=== PATIENT | female | born 1980 | race Caucasian/White ===

== ENCOUNTER 2018-02-05 21:08 | Emergency (ER) | payer BC ==
[2018-02-05] MEDS ORDERED: LISI-362 PO (21:20)
[2018-02-05] MEDS ORDERED: VENL150C61 PO (21:20)
[2018-02-05] MEDS ORDERED: VENL75CA58 PO (21:20)
--- NOTE | 2018-02-05 21:32 | ER Report ---
History and Physical Time Seen By MD: 21:32 Hx. of Stated Complaint: Patient stepped wrong on break in concrete twisting leg and then falling to the ground this am. Complains of pain to whole left leg HPI/ROS CHIEF COMPLAINT: HISTORY OF PRESENT ILLNESS: This is a 37 year old female. She tripped on the concrete and twisted her leg and fell. This happened this morning. She is having pain in the left lower extremity from the foot up to the hip. She is able to bear weight, but very painful. Can move the leg, but hurts when she does. Pain seems worse in the ankle and lower leg. Some in the knee and hip as well. Normal sensation in the leg and foot. Allergies: Coded Allergies: egg (Verified Adverse Reaction, Intermediate, 02/05/18) stomach "not well" Home Meds Active Scripts Hydrocodone Bit/Acetaminophen (HYDROCODON-ACETAMINOPHEN 5-325) 1 Each Tablet, 1 EACH PO Q4H PRN for PAIN, #6 TAB 0 Refills Prov:JULIAN HAIR MD 02/05/18 Cyclobenzaprine Hcl (CYCLOBENZAPRINE HCL) 10 Mg Tablet, 10 MG PO Q8H PRN for MUSCLE SPASMS, #10 TAB 0 Refills Prov:JULIAN HAIR MD 02/05/18 Reported Medications Lisinopril (LISINOPRIL) 10 Mg Tablet, 10 MG PO QDAY, TAB 02/05/18 Venlafaxine Hcl (EFFEXOR XR) 150 Mg Cap.er.24h, 150 MG PO QDAY 02/05/18 Venlafaxine Hcl (EFFEXOR XR) 75 Mg Cap.er.24h, 75 MG PO QDAY 02/05/18 Reviewed Nurses Notes: Yes Hx Substance Use Disorder: No Hx Alcohol Use: No Constitutional Vital Sign - Last 24 Hours 02/05/18 02/05/18 02/05/18 02/05/18 21:12 21:12 22:38 22:53 Temp 97.9 Pulse 113 110 102 Resp 18 B/P (MAP) 131/103 131/103 (112) Pulse Ox 92 88 92 O2 Delivery Room Air 02/05/18 02/05/18 02/05/18 22:58 23:13 23:30 Pulse 104 105 85 Resp 16 B/P (MAP) 138/82 (100) Pulse Ox 90 88 92 O2 Delivery Room Air Physical Exam General Appearance: The patient is alert. No acute distress. Cardiovascular: Normal capillary refill and pulses. Neurological: Normal sensation throughout the leg and foot. Skin: No redness or breakdown. Musculoskeletal: Pain over the medial and lateral malleoli of the ankle. Pain over the head of the fifth metatarsal. No pain in the rest of the foot. Pain anterior tibia of the lower leg and lateral side of the leg. Pain in the knee with movement, but no laxity. Some pain on lateral joint line, but none on medial. No posterior knee pain. Has some pain lateral hip over area of the greater trochanter. No posterior or anterior area hip pain. DIFFERENTIAL DIAGNOSIS: After history and physical exam, differential diagnosis was considered for fall with leg injury and pain, will look for fracture versus musculoskeletal soft tissue injury Medical Decision Making EKG/Imaging Imaging X-ray: Foot, ankle, tib-fib, knee, and hip, all on the left leg were obtained. I viewed the images myself on the PACS system. My interpretation of the images is: Negative, no acute osteoarticular abnormality. The radiologist interpretation had no clinically significant variation from this interpretation. ED Course/Re-evaluation ED Course Imaging negative. Discussed this with the patient. This appears to be an ankle strain and then multiple contusions. Conservative treatment as outlined below. She is not able to take large amounts of NSAIDs because of prior ulcer history. Decision to Disposition Date: Feb 05, 2018 Decision to Disposition Time: 23:16 Depart Departure Latest Vital Signs Vital Signs Date Time Temp Pulse Resp B/P (MAP) Pulse Ox O2 Delivery O2 Flow Rate FiO2 02/05/18 23:30 85 16 138/82 (100) 92 Room Air 02/05/18 21:12 97.9 Impression: Primary Impression: Contusion of leg, left, multiple sites Additional Impression: Left ankle sprain Condition: Improved Disposition: HOME OR SELF-CARE New Scripts Hydrocodone Bit/Acetaminophen (HYDROCODON-ACETAMINOPHEN 5-325) 1 Each Tablet 1 EACH PO Q4H PRN for PAIN, #6 TAB 0 Refills Prov: JULIAN HAIR MD 02/05/18 Cyclobenzaprine Hcl (CYCLOBENZAPRINE HCL) 10 Mg Tablet 10 MG PO Q8H PRN for MUSCLE SPASMS, #10 TAB 0 Refills Prov: JULIAN HAIR MD 11/1/18 Patient Instructions: Ankle Sprain (ED), Contusion in Adults (ED) Additional Instructions: You have a sprain of your ankle and contusions on you knee and hip area. Take Aleve over the counter tablets, 2 tablets twice a day with food. Because of your history of stomach problems, you will want to only do this for a few days. Lortab 5/325, one every 4 hours as needed for pain. Flexeril 10mg, one every 8 hours as needed for pain or muscle spasm. Apply ice 20 minutes every 1-2 hours while awake. An LOKESH wrap can be used for compression to help reduce swelling. You can use crutches with weight bearing increasing as the pain decreases until you no longer need the crutches. Rest the injured area, keep it elevated while at rest. Begin gentle range of motion exercises. Problem Qualifiers Primary Impression: Contusion of leg, left, multiple sites Encounter type: initial encounter Qualified Codes: S80.12XA - Contusion of left lower leg, initial encounter Additional Impression: Left ankle sprain Encounter type: initial encounter Involved ligament of ankle: unspecified ligament Qualified Codes: S93.402A - Sprain of unspecified ligament of left ankle, initial encounter JULIAN HAIR MD Feb 05, 2018 21:32
--- NOTE | 2018-02-05 22:56 | RADIOLOGY IMAGING REPORT ---
FACILITY: [facility] [place] PATIENT NAME: Agustina Orellana : 1980 MR: [id number] V: [id number] EXAM DATE: ORDERING PHYSICIAN: JULIAN HAIR TECHNOLOGIST: [place] [facility] [place] Agustina Orellana : 1980 Visit/Account:[id number] Date of Sevice: 02/05/2018 ANKLE 3 VIEW MIN LEFT COMPARISONS: None. ADDITIONAL PERTINENT HISTORY: Ankle pain after fall FINDINGS: Osseous structures: Moderate-sized plantar calcaneal spur. No bony fractures. Joint spaces: Minimal joint space narrowing involving the mid foot Surrounding soft tissues: Negative. IMPRESSION: No evidence of acute bony abnormality involving the left ankle. Report Dictated By: Bry Pereira MD at 02/05/2018 10:50 PM Report E-Signed By: Bry Pereira MD at 02/05/2018 10:52 PM WSN:[id number]
--- NOTE | 2018-02-05 22:58 | RADIOLOGY IMAGING REPORT ---
FACILITY: [facility] - [place] PATIENT NAME: Agustina Orellana : 1980 MR: [id number] V: [id number] EXAM DATE: ORDERING PHYSICIAN: JULIAN HAIR TECHNOLOGIST: Location: [facility] Patient: Agustina Orellana : 1980 Visit/Account:[id number] Date of Sevice: 02/05/2018 FOOT 3 VIEW LEFT COMPARISONS: None. ADDITIONAL PERTINENT HISTORY: Pain after fall FINDINGS: Osseous structures: Moderate-sized plantar calcaneal spur. Mild subchondral sclerosis and osteophyte formation involving the left midfoot. Joint spaces: Negative. Surrounding soft tissues: Negative. IMPRESSION: 1. Moderate-sized plantar calcaneal spur. 2. 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 3. No acute appearing bony abnormalities. Report Dictated By: Bry Pereira MD at 02/05/2018 10:52 PM Report E-Signed By: Bry Pereira MD at 02/05/2018 10:53 PM WSN:[id number]
--- NOTE | 2018-02-05 22:58 | RADIOLOGY IMAGING REPORT ---
FACILITY: [facility] - [place] PATIENT NAME: Agustina Orellana : 1980 MR: [id number] V: [id number] EXAM DATE: ORDERING PHYSICIAN: JULIAN HAIR TECHNOLOGIST: Location: [facility] - [place] Patient: Agustina Orellana : 1980 Visit/Account:[id number] Date of Sevice: 02/05/2018 HIP LEFT COMPARISONS: None. ADDITIONAL PERTINENT HISTORY: Fall with pain. FINDINGS: Osseous structures: Negative. Joint spaces: Negative. Surrounding soft tissues: Negative. IMPRESSION: Normal views of the pelvis and left hip. Report Dictated By: Bry Pereira MD at 02/05/2018 10:53 PM Report E-Signed By: Bry Pereira MD at 02/05/2018 10:54 PM WSN:[id number]
--- NOTE | 2018-02-05 23:01 | RADIOLOGY IMAGING REPORT ---
FACILITY: [facility] - [place] PATIENT NAME: Agustina Orellana : 1980 MR: [id number] V: [id number] EXAM DATE: ORDERING PHYSICIAN: JULIAN HAIR TECHNOLOGIST: Location: [facility] [place] Patient: Agustina Orellana : 1980 Visit/Account:[id number] Date of Sevice: 02/05/2018 KNEE 4 VIEW LEFT COMPARISONS: None. ADDITIONAL PERTINENT HISTORY: Pain after fall FINDINGS: Osseous structures: Mild subchondral sclerosis and osteophyte formation involving the medial compartm ent of the left knee. No bony fractures. Joint spaces: Mild joint space narrowing involving the medial compartment of the left knee. Otherwise negative Surrounding soft tissues: Negative. IMPRESSION: 1. Mild osteoarthritic changes involving the left knee. 2. No acute appearing bony abnormalities. Report Dictated By: Bry Pereira MD at 02/05/2018 10:54 PM Report E-Signed By: Bry Pereira MD at 02/05/2018 10:57 PM WSN:[id number]
--- NOTE | 2018-02-05 23:01 | RADIOLOGY IMAGING REPORT ---
FACILITY: [facility] PATIENT NAME: Agustina Orellana : 1980 MR: [id number] V: [id number] EXAM DATE: ORDERING PHYSICIAN: JULIAN HAIR TECHNOLOGIST: Location: [facility] - [place] Patient: Agustina Orellana : 1980 Visit/Account:[id number] Date of Sevice: 02/05/2018 TIBIA FIBULA LEFT COMPARISONS: None. ADDITIONAL PERTINENT HISTORY: Fall with pain FINDINGS: Osseous structures: Negative. Joint spaces: Negative. Surrounding soft tissues: Negative. IMPRESSION: Normal views of the left tibia and fibula. Report Dictated By: Bry Pereira MD at 02/05/2018 10:57 PM Report E-Signed By: Bry Pereira MD at 02/05/2018 10:57 PM WSN:[email or web address]
[2018-02-05] MEDS ORDERED: LOR5/325 PO (23:18)
[2018-02-05] MEDS ORDERED: CYCL10TA29 PO (23:18)
[2018-02-05] MEDS ORDERED: ACET/HYDROC 5/325MG TH ER ONLY 2 TAB/BOTTLE PO ONE (23:25)
[2018-02-05] MEDS ORDERED: CYCLOBENZAPRINE HCL 10 MG TH PO ONE (23:25)
[2018-02-05 23:30] VITALS: BP 138/82
== END 2018-02-05 23:39 | disposition home or self-care (01) ==
LOC: ER 21:51
DX: S93.402A Sprain of unspecified ligament of left ankle, initial encounter (principal); S80.12XA Contusion of left lower leg, initial encounter
CPT/HCPCS: 73564; 99284

== ENCOUNTER 2018-10-15 10:41 | Emergency (ER) | payer SELFPAY ==
[~2018-10-15 10:41] MED LIST: CYCL10TA29 PO; LISI-362 PO; LOR5/325 PO; VENL150C61 PO; VENL75CA58 PO
--- NOTE | 2018-10-15 10:57 | ER Report ---
History and Physical Time Seen By MD: 10:55 HPI/ROS CHIEF COMPLAINT: Hand pain HISTORY OF PRESENT ILLNESS: This is a 38-year-old female presents to the emergency department for left hand pain. Patient states that yesterday she was feeling a cardiac catheter, tripped over the hose fell forward with her left hand and forearm into a garbage can that was covered with rocks. She states that she's had pain and swelling since, decreased range of motion. No numbness or tingling. Small abrasion to the dorsum of the hand. Denies hitting her head. REVIEW OF SYSTEMS: Respiratory: No cough, no dyspnea. Cardiovascular: No chest pain, no palpitations. Gastrointestinal: No vomiting, no abdominal pain. Musculoskeletal: As above. Allergies: Coded Allergies: egg (Verified Adverse Reaction, Intermediate, 02/05/18) stomach "not well" Home Meds Active Scripts Hydrocodone Bit/Acetaminophen (HYDROCODON-ACETAMINOPHEN 5-325) 1 Each Tablet, 1 EACH PO Q4H PRN for PAIN, #6 TAB 0 Refills Prov:JULIAN HAIR MD 02/05/18 Cyclobenzaprine Hcl (CYCLOBENZAPRINE HCL) 10 Mg Tablet, 10 MG PO Q8H PRN for MUSCLE SPASMS, #10 TAB 0 Refills Prov:JULIAN HAIR MD 02/05/18 Reported Medications Lisinopril (LISINOPRIL) 10 Mg Tablet, 10 MG PO QDAY, TAB 02/05/18 Venlafaxine Hcl (EFFEXOR XR) 150 Mg Cap.er.24h, 150 MG PO QDAY 02/05/18 Venlafaxine Hcl (EFFEXOR XR) 75 Mg Cap.er.24h, 75 MG PO QDAY 02/05/18 Past Medical/Surgical History The patient has a past medical and surgical history of appendectomy, bilateral oophorectomy. Reviewed Nurses Notes: Yes Hx Substance Use Disorder: No Hx Alcohol Use: No Constitutional Vital Sign - Last 24 Hours 10/15/18 10/15/18 10/15/18 10:56 10:57 12:00 Temp 98.2 Pulse 102 82 Resp 16 16 B/P (MAP) 132/89 142/82 (102) Pulse Ox 93 91 O2 Delivery Room Air Room Air O2 Flow Rate 1.5 Physical Exam General Appearance: The patient is alert, has no immediate need for airway protection and no current signs of toxicity. Eyes: Pupils equal and round no injection. Respiratory: Chest is non tender, lungs are clear to auscultation. Cardiac: regular rate and rhythm. Gastrointestinal: Abdomen is soft and non tender, no masses, bowel sounds normal. Musculoskeletal: Neck: Neck is supple and non tender. Extremities left distal forearm pain with small amount swelling, generalized left wrist pain. No crepitus or obvious deformities. Skin: No rashes or lesions. DIFFERENTIAL DIAGNOSIS: After history and physical exam differential diagnosis was considered for contusion, wrist sprain, fracture, subluxation. Medical Decision Making EKG/Imaging Imaging PATIENT NAME: Agustina Orellana : 1980 MR: [id number] V: [id number] EXAM DATE: ORDERING PHYSICIAN: JUSTYN MUNOZ TECHNOLOGIST: [place] [facility] [place] Agustina Orellana : 1980 Visit/Account:[id number] Date of Sevice: 10/15/2018 Exam type: FOREARM LEFT History: fall, pain, swelling Comparison: Left hand performed today Findings: There is no evidence of acute fracture-dislocation involving the left forearm. No radiopaque soft tissue foreign body seen. No significant degenerative changes are identified. IMPRESSION: 1. No acute osteoarticular abnormality of the left forearm is seen Report Dictated By: Therese Morrison MD at 10/15/2018 11:39 AM Report E-Signed By: Therese Morrison MD at 10/15/2018 11:40 AM WSN:[email or web address] PATIENT NAME: Agustina Orellana : 1980 MR: [id number] V: [id number] EXAM DATE: ORDERING PHYSICIAN: JUSTYN MUNOZ TECHNOLOGIST: [place] [facility] [place] Agustina Orellana : 1980 Visit/Account:[id number] Date of Sevice: 10/15/2018 Exam type: FOREARM LEFT History: fall, pain, swelling Comparison: Left hand performed today Findings: There is no evidence of acute fracture-dislocation involving the left forearm. No radiopaque soft tissue foreign body seen. No significant degenerative changes are identified. IMPRESSION: 1. No acute osteoarticular abnormality of the left forearm is seen Report Dictated By: Therese Morrison MD at 10/15/2018 11:39 AM Report E-Signed By: Therese Morrison MD at 10/15/2018 11:40 AM WSN:[email or web address] ED Course/Re-evaluation ED Course The patient was admitted to room. A history and physical were obtained. Differential diagnosis considered. An x-ray of the left wrist and forearm were negative for any acute osseous abnormalities. Results were reviewed with the patient. Did tell her this is a wrist sprain, she is placed in a Colles' splint, instructed to wear for comfort, remove the splint every 2 hours perform range of motion exercises and follow up with her primary care provider or [facility] if no improvement next week. Return to the ER for any other concerns, she was agreeable and discharged home. The patient's tetanus was updated. Decision to Disposition Date: Oct 15, 2018 Decision to Disposition Time: 11:55 Depart Departure Latest Vital Signs Vital Signs Date Time Temp Pulse Resp B/P (MAP) Pulse Ox O2 Delivery O2 Flow Rate FiO2 10/15/18 12:00 82 16 142/82 (102) 91 Room Air 10/15/18 10:57 98.2 10/15/18 10:56 1.5 Impression: Primary Impression: Sprain of left wrist Condition: Improved Disposition: HOME OR SELF-CARE Referrals: [facility] Patient Instructions: Active Range of Motion Exercises (GEN), Wrist Sprain (ED) Additional Instructions: There were no concerning findings on the x-rays today. Keep the splint on for comfort, I do want to remove the splint every 2 hours and perform gentle range of motion exercises. Ibuprofen and Tylenol work well for pain. Keep the hand elevated to the level of the heart, this will help with pain and swelling. If no improvement in one week, follow up with [facility] for reevaluation. Return to the ED for any other concerns or worsening symptoms. Please allow for limited use of Ms. Orellana's left hand for 1 week due to injury. Problem Qualifiers Primary Impression: Sprain of left wrist Encounter type: initial encounter Qualified Codes: S63.502A - Unspecified sprain of left wrist, initial encounter JUSTYN MUNOZP- Oct 15, 2018 10:57
[2018-10-15] MEDS ORDERED: DIPHTH/TETANUS/ACEL. PERTUSSIS IM ONLY ONE (11:05)
--- NOTE | 2018-10-15 11:46 | RADIOLOGY IMAGING REPORT ---
FACILITY: [facility] - [place] PATIENT NAME: Agustina Orellana : 1980 MR: [id number] V: [id number] EXAM DATE: ORDERING PHYSICIAN: JUSTYN MUNOZ TECHNOLOGIST: Location: [facility] - [place] Patient: Agustina Orellana : 1980 Visit/Account:[id number] Date of Sevice: 10/15/2018 Exam type: HAND COMPLETE LEFT History: fall, pain, swelling Comparison: Left forearm performed today. Findings: Three views were submitted there is no evidence of acute fracture dislocation or radiopaque soft tiss ue foreign body involving the left hand. No significant arthritic change identified IMPRESSION: 1. No acute osteoarticular abnormality the left hand is seen Report Dictated By: Therese Morrison MD at 10/15/2018 11:37 AM Report E-Signed By: Therese Morrison MD at 10/15/2018 11:39 AM WSN:[email or web address]
--- NOTE | 2018-10-15 11:47 | RADIOLOGY IMAGING REPORT ---
FACILITY: [facility] PATIENT NAME: Agustina Orellana : 1980 MR: [id number] V: [id number] EXAM DATE: ORDERING PHYSICIAN: JUSTYN MUNOZ TECHNOLOGIST: Location: [facility] [place] Patient: Agustina Orellana : 1980 Visit/Account:[id number] Date of Sevice: 10/15/2018 Exam type: FOREARM LEFT History: fall, pain, swelling Comparison: Left hand performed today Findings: There is no evidence of acute fracture-dislocation involving the left forearm. No radiopaque soft ti ssue foreign body seen. No significant degenerative changes are identified. IMPRESSION: 1. No acute osteoarticular abnormality of the left forearm is seen Report Dictated By: Therese Morrison MD at 10/15/2018 11:39 AM Report E-Signed By: Therese Morrison MD at 10/15/2018 11:40 AM WSN:[email or web address]
[2018-10-15 12:00] VITALS: BP 142/82
== END 2018-10-15 12:09 | disposition home or self-care (01) ==
LOC: ER 11:02
DX: S63.502A Unspecified sprain of left wrist, initial encounter (principal); W01.198A Fall on same level from slipping, tripping and stumbling with subsequent striking against other object, initial encounter
CPT/HCPCS: 73090; 73130; 90471; 90715; 99284; L3763